=== PATIENT | female | born 1985 | race Caucasian/White ===

== ENCOUNTER → 2018-11-27 | Day surgery (SDC) | payer OTHER ==
[~2018-11-27] MED LIST: ACETAMINOPHEN 325 MG TABLET PO PRN; ACTI260C PO; ALBU2.5V8 IH; ALBUTEROL SULFATE 2.5 MG/3 ML NEBU. NEB PRN; DULO60CA44 PO; DULO60CA6 PO; GABA800T3 PO; IPRATRPIUM/ALBUTEROL 0.5/2.5MG 3 ML NEBU. NEB PRN; IV RINGERS SOLUTION,LACTATED 1,000 ML IV SCH; LAMO200T3 PO; MELA3TAB2 PO; METH27TA5 PO; MONT10TA9 PO; OMEP20TA63 PO; ONDANSETRON PF 4 MG/2 ML VIAL. IV PRN; POLY17PO5 PO; TRAM50TA PO
[2018-11-27 10:15] VITALS: BP 120/82
[2018-11-27 10:38] LABS: U PREG PATIENT NEGATIVE (NEG)
== END | disposition home or self-care (01) ==
LOC: SURG 09:41
PROVIDERS: ATTEND Internal Medicine Gastroenterology
DX: R19.4 Change in bowel habit (principal); Z53.8 Procedure and treatment not carried out for other reasons; Z88.2 Allergy status to sulfonamides; Z88.6 Allergy status to analgesic agent; Z79.899 Other long term (current) drug therapy; F17.200 Nicotine dependence, unspecified, uncomplicated; J45.909 Unspecified asthma, uncomplicated; K21.9 Gastro-esophageal reflux disease without esophagitis; Z98.890 Other specified postprocedural states; F32.9 Major depressive disorder, single episode, unspecified
CPT/HCPCS: 81025; J7120

== ENCOUNTER 2021-05-29 22:29 | Emergency (ER) | payer OTHER ==
[~2021-05-29] VITALS: Ht 162.6 cm; Wt 65.0 kg
[~2021-05-29 22:29] MED LIST changes: -ACETAMINOPHEN 325 MG TABLET PO PRN; -ALBUTEROL SULFATE 2.5 MG/3 ML NEBU. NEB PRN; -DULO60CA44 PO; +DULO60CA98 PO; -GABA800T3 PO; +GABA800T5 PO; -IPRATRPIUM/ALBUTEROL 0.5/2.5MG 3 ML NEBU. NEB PRN; -IV RINGERS SOLUTION,LACTATED 1,000 ML IV SCH; -MELA3TAB2 PO; +MELA3TAB4 PO; +MONT10TA80 PO; -MONT10TA9 PO; -ONDANSETRON PF 4 MG/2 ML VIAL. IV PRN
--- NOTE | 2021-05-29 22:43 | PHYS DOC ---
Past History Past Medical History: Anxiety, Constipation, Depression, GERD Past Surgical History: Tonsillectomy Smoking: Cigarettes Alcohol Use: Occasionally Drug Use: None General Adult EDM: Chief Complaint: CONSTIPATION HPI: HPI: "..I am so constipated...I ve tried some over the counter meds.. but... I can n ot go...." " my rectal area hurts really bad now...".. " I ve always had problems with constipation..." Patient is a 35 year old female who presents with rectal pain and constipation. Pt. complaints of rectal pain after attempting to force a stool. Patient has a distended abdomen. On rectal exam has very hard impacted stool which was digitally broken up. Patient after digital exam and placement of glycerin suppository was eventually able to pass a large amount of stool. Patient encouraged to consume GoLYTELY with juice of choice. Until stooling clear. Save remaining GoLYTELY and drink 1 cup a day until stooling at regular intervals. Follow-up primary care. Consider colonoscopy. Return if any concerns. Recommend patient stay on only a clear fluid diet for the next couple days. No solids or milk products. Patient return if any concerns. Review of Systems: Review of Systems: Constitutional: Denies fever or chills Eyes: Denies change in visual acuity HENT: Denies nasal congestion or sore throat Respiratory: Denies cough or shortness of breath Cardiovascular: Denies chest pain or edema GI: Complains of abdominal pain, nausea, and constipation : Denies dysuria Musculoskeletal: Denies back pain or joint pain Integument: Denies rash Neurologic: Denies headache, focal weakness or sensory changes Endocrine: Denies polyuria or polydipsia Lymphatic: Denies swollen glands Psychiatric: Denies depression or anxiety Family History: Family History: Noncontributory to presentation Current Medications: Current Meds: See nursing for home meds Allergies: Allergies: Allergies Coded Allergies Type Severity Reaction Last Updated Verified Sulfa (Sulfonamide Antibiotics) Allergy Unknown 11/22/18 Yes doxycycline Allergy Unknown 11/22/18 Yes Physical Exam: PE: Constitutional: in acute distress, non-toxic appearance. [] HENT: Normocephalic, atraumatic, bilateral external ears normal, oropharynx moist, no oral exudates, nose normal. [] Eyes: PERRLA, EOMI, conjunctiva normal, no discharge. [] Neck: Normal range of motion, no tenderness, supple, no stridor. [] Cardiovascular:Heart rate regular rhythm, no murmur [] Lungs & Thorax: Bilateral breath sounds clear to auscultation [] Abdomen: Bowel sounds normal, soft, generalized abdomen tenderness, no masses, no pulsatile masses. Very distended. Hard stool impacted in rectal vault. Skin: Warm, dry, no erythema, no rash. [] Back: No tenderness, no CVA tenderness. [] Extremities: No tenderness, no cyanosis, no clubbing, ROM intact, no edema. No cording appreciated Neurologic: Alert and oriented X 3, normal motor function, normal sensory function, no focal deficits noted. [] Psychologic: Affect anxious, judgement normal, mood normal. [] EKG: EKG: [] Radiology/Procedures: Radiology/Procedures: [][place] [address] IMAGING REPORT Signed PATIENT: HIRA REDDING LACCOUNT: [id number] : 1985 LOCATION: ER AGE: 35 SEX: F EXAM STATUS: DEP ER ORD. PHYSICIAN: SEUN ARTHUR MD REASON: pain, CONSTIPATION PROCEDURE: ACUTE ABDOMEN SERIES INDICATION: Reason: pain, CONSTIPATION / Spl. Instructions: / History: COMPARISON: December 2013 chest x-ray IMPRESSION: 3 views of the chest and abdomen obtained. Mild patchy opacity at the right lung base could be from atelectasis or infiltrate. Cardiac silhouette is unremarkable. There is a couple of air-fluid levels within the small bowel which could be from liquid stool with small bowel loops measuring up to approximately 34 mm which is mildly dilated. Overall nonspecific in nature but ileus or partial obstruction not excluded. This could also just be from phase of peristalsis with liquid stool as well. Electronically signed by: Raquel Dias MD (05/30/2021 1:03 AM) [id number] DICTATED AND SIGNED BY: RAQUEL DIAS MD DATE: 05/30/21100 CC: SEUN ARTHUR MD; ANJALI EDMONDS DO ~MTH0 0 Heart Score: C/O Chest Pain: N/A Risk Factors: Risk Factors: DM, Current or recent (<one month) smoker, HTN, HLP, family history of CAD, obesity. Risk Scores: Score 0 - 3: 2.5% MACE over next 6 weeks - Discharge Home Score 4 - 6: 20.3% MACE over next 6 weeks - Admit for Clinical Observation Score 7 - 10: 72.7% MACE over next 6 weeks - Early Invasive Strategies Course & Med Decision Making: Course & Med Decision Making Pertinent Labs and Imaging studies reviewed. (See chart for details) Patient continue GoLYTELY as instructed. Once stooling clear. Drink a cup of GoLYTELY daily until stooling regularly. Tylenol and ibuprofen for pain. Return if any concerns. Recommend follow-up colonoscopy. Patient to stay on a clear fluid diet for the next couple days. No solids. No milk products must allow bowel rest. Impression: 1. Abdomen pain 2. Constipation [] Dragon Disclaimer: Dragon Disclaimer: This electronic medical record was generated, in whole or in part, using a voice recognition dictation system. Departure Departure: Referrals: ANJALI EDMONDS DO (PCP) Scripts Peg 3350/Na Sulf,Bicarb,Cl/Kcl (GOLYTELY SOLUTION) 4,000 Ml Soln.recon 4000 ML PO until stools clear, for constipation, #1 MISC Prov: SEUN ARTHUR MD 05/30/21 Wily Disclaimer This chart was dictated in whole or in part using Voice Recognition software in a busy, high-work load, and often noisy Emergency Department environment. It may contain unintended and wholly unrecognized errors or omissions. Dragon Disclaimer This chart was dictated in whole or in part using Voice Recognition software in a busy, high-work load, and often noisy Emergency Department environment. It may contain unintended and wholly unrecognized errors or omissions. SEUN ARTHUR MD May 29, 2021 22:43
[2021-05-29] MEDS ORDERED: GLYCERIN ADULT 1 SUPP.RECT. PR ONE ×2 (23:00→23:15)
[2021-05-29] MEDS ORDERED: IV RINGERS SOLUTION,LACTATED 1,000 ML IV ONE (23:15)
[2021-05-29] MEDS ORDERED: KETOROLAC 30 MG/ML VIAL. IVP ONE (23:15)
[2021-05-29] MEDS ORDERED: PEG 3350/NA SULF,BICARB,CL/KCL 4,000 ML SOLUTION. PO ONE (23:15)
[2021-05-30] MEDS ORDERED: PEG4000S8 PO (00:24)
[2021-05-30 00:47] VITALS: BP 126/79
--- NOTE | 2021-05-30 01:05 | RAD ---
INDICATION: Reason: pain, CONSTIPATION / Spl. Instructions: / History: COMPARISON: December 2013 chest x-ray IMPRESSION: 3 views of the chest and abdomen obtained. Mild patchy opacity at the right lung base could be from atelectasis or infiltrate. Cardiac silhouette is unremarkable. There is a couple of air-fluid levels within the small bowel which could be from liquid stool with sm all bowel loops measuring up to approximately 34 mm which is mildly dilated. Overall nonspecific in n ature but ileus or partial obstruction not excluded. This could also just be from phase of peristalsi s with liquid stool as well. Electronically signed by: Mike Carrion MD (05/30/2021 1:03 AM) [id number]
== END 2021-05-30 00:39 | disposition home or self-care (01) ==
LOC: ER 22:29
DX: K59.00 Constipation, unspecified (principal); K21.9 Gastro-esophageal reflux disease without esophagitis; F17.210 Nicotine dependence, cigarettes, uncomplicated; Z88.2 Allergy status to sulfonamides; Z88.1 Allergy status to other antibiotic agents
CPT/HCPCS: 74022; 96361; 96374; 99283; J1885; J7120